=== PATIENT | male | born 1980 | race Caucasian/White ===

== ENCOUNTER 2021-08-09 20:35 | Emergency (ER) | payer BC | END 2021-08-09 20:36 | disposition left against medical advice (07) | LOC: ER1 20:35 | DX: Z53.21 Procedure and treatment not carried out due to patient leaving prior to being seen by health care provider (principal) ==

== ENCOUNTER → 2021-09-12 | Outpatient (CLI) | payer OTHER | LOC: KOH-I 08:13 | DX: S93.622A Sprain of tarsometatarsal ligament of left foot, initial encounter (principal); R60.0 Localized edema; W19.XXXA Unspecified fall, initial encounter | CPT/HCPCS: 73718 ==